=== PATIENT | female | born 1995 | race Caucasian/White ===

== ENCOUNTER 2017-01-08 14:00 | Outpatient (CLI) | payer MEDICAID | END 2017-01-08 14:01 | disposition home or self-care (01) | DX: L70.0 Acne vulgaris (principal); Z79.899 Other long term (current) drug therapy ==

== ENCOUNTER 2017-01-14 13:22 | Outpatient (CLI) | payer MEDICAID | END 2017-01-14 13:23 | disposition home or self-care (01) | DX: L70.0 Acne vulgaris (principal); Z79.899 Other long term (current) drug therapy ==

== ENCOUNTER 2017-03-15 07:43 | Outpatient (CLI) | payer MEDICAID | END 2017-03-15 07:44 | disposition home or self-care (01) | LOC: LAB.F 07:43 | PROVIDERS: ATTEND Physician Assistant Medical | DX: L70.0 Acne vulgaris (principal) | CPT/HCPCS: 36415; 84703 ==

== ENCOUNTER 2017-04-15 09:43 | Outpatient (CLI) | payer MEDICAID | END 2017-04-15 09:44 | disposition home or self-care (01) | LOC: LAB.F 09:43 | PROVIDERS: ATTEND Physician Assistant Medical | DX: I70.0 Atherosclerosis of aorta (principal) | CPT/HCPCS: 36415; 84703 ==

== ENCOUNTER 2017-05-21 07:45 | Outpatient (CLI) | payer MEDICAID ==
[2017-05-21 11:54] LABS: CHOL/HDL RATIO 5.9 (<4.4); CHOLESTEROL 170 mg/dL; HDL CHOLESTEROL 29 mg/dL; LDL/HDL RATIO 3.9 (<4.4); TRIGLYCERIDES 146 mg/dL; VLDL CHOLESTEROL 29 mg/dL
== END 2017-05-21 07:46 | disposition home or self-care (01) ==
LOC: LAB.F 07:45
PROVIDERS: ATTEND Physician Assistant Medical
DX: Z79.899 Other long term (current) drug therapy (principal)
CPT/HCPCS: 36415; 80061; 84450; 84460; 84703

== ENCOUNTER 2017-08-22 09:17 | Outpatient (CLI) | payer MEDICAID ==
[2017-08-22 18:25] LABS: CHOL/HDL RATIO 6.2 (<4.4); CHOLESTEROL 192 mg/dL; HDL CHOLESTEROL 31 mg/dL; LDL/HDL RATIO 4.4 (<4.4); TRIGLYCERIDES 124 mg/dL; VLDL CHOLESTEROL 25 mg/dL
== END 2017-08-22 09:18 | disposition home or self-care (01) ==
LOC: LAB.F 09:17
PROVIDERS: ATTEND Physician Assistant Medical
DX: Z79.899 Other long term (current) drug therapy (principal)
CPT/HCPCS: 36415; 80061; 84450; 84460; 84703

== ENCOUNTER 2020-01-18 13:28 | Emergency (ER) | payer MEDICAID ==
--- NOTE | 2020-01-18 13:50 | ED Physician Documentation ---
PD HPI FEMALE - Stated complaint Stated Complaint: FEMALE - Chief complaint Chief Complaint: Abd Pain - History obtained from History obtained from: Patient - History of Present Illness Timing - onset: How many weeks ago (7) Timing - duration: Weeks (7) Timing - details: Abrupt onset, Still present Associated symptoms: Pelvic pain, Vaginal pain, Vaginal bleeding Contributing factors: Not sexually active. 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 She has had bleeding and cramping passing clots and she is saturating 6 large pads per day. She has been in to see her primary care and she has had an ultrasound done. They were unable to do a transvaginal as it hurt too much. She states that she has not had a pelvic examination and she does not believe she has been exposed to any STDs. She denies ever having intercourse. She does interact indicate that she has had intermittent vaginal pain as well as cramping pelvic pain associated with the bleeding. She has a history of iron deficiency anemia. She indicates that her menstrual periods were regular for some time until her mother went into menopause and after that she has been irregular and now continued bleeding for 7 weeks. She was put on a course of progesterone and when this did not work she was put on a higher dose which seemed to help a bit but did not resolve her problem. She is now been placed on a higher dose control pill without resolution of her symptoms over the past 2 weeks. Review of Systems Constitutional: denies: Fever Eyes: denies: Photophobia Ears: denies: Ear pain Nose: denies: Congestion Throat: denies: Sore throat Cardiac: denies: Chest pain / pressure, Palpitations Respiratory: denies: Dyspnea, Cough GI: denies: Abdominal Pain, Nausea, Vomiting, Constipation, Diarrhea : reports: Vaginal bleeding. denies: Dysuria, Frequency Skin: denies: Rash Musculoskeletal: denies: Neck pain, Back pain, Extremity pain Neurologic: denies: Generalized weakness, Focal weakness, Numbness PD PAST MEDICAL HISTORY - Present Medications Home Medications: Ambulatory Orders Medication Instructions Recorded Confirmed Medroxyprogesterone Acetate 10 mg PO DAILY PM #12 tablet 01/18/20 [Provera] - Allergies Allergies/Adverse Reactions: Allergies Allergy/AdvReac Type Severity Reaction Status Date / Time Penicillins Allergy Rash Verified 01/18/20 13:42 PD ED PE NORMAL - Vitals Vital signs reviewed: Yes (hypertensive ) - General General: Alert and oriented X 3, No acute distress, Well developed/nourished - HEENT HEENT: Atraumatic, PERRL, EOMI - Neck Neck: Supple, no meningeal sign - Respiratory Respiratory: No respiratory distress - Female Female : Mill Laborer present (radha), Other (bleeding from the vagina. There is pain to insertion of the speculum and there is redundant tissue. I am no able visulaize the cervix or tell where the bleeding is coming from. The bimanual e xam is similar in that I am not able to get the fingers deep enough to feel the cervix. The exam is inadequate to answer the first question about where the bleeding is coming from. ) - Derm Derm: Normal color, Warm and dry, No rash - Extremities Extremities: No deformity, No edema, No calf tenderness / cord Results - Vitals Vitals: Vital Signs - 24 hr 01/18/20 13:38 Temperature 36.1 C L Heart Rate 91 Respiratory 16 Rate Blood Pressure 147/86 H O2 Saturation 96 Oxygen O2 Source Room air - Labs Labs: Laboratory Tests 01/18/20 01/18/20 01/18/20 13:45 13:45 14:37 WBC 11.6 H RBC 3.99 L Hgb 11.2 L Hct 34.6 L MCV 86.7 MCH 28.1 MCHC 32.4 RDW 13.2 Plt Count 301 MPV 9.6 Neut # (Auto) 7.6 H Lymph # (Auto) 3.0 Owen # (Auto) 0.5 Eos # (Auto) 0.4 Baso # (Auto) 0.1 Absolute Nucleated RBC 0.00 Nucleated RBC % 0.0 PT INR Sodium Potassium Chloride Carbon Dioxide Anion Gap BUN Creatinine Estimated GFR (MDRD) Glucose Calcium Total Bilirubin AST ALT Alkaline Phosphatase Total Protein Albumin Globulin Albumin/Globulin Ratio Lipase Urine Color RED/BLOODY Urine Clarity CLOUDY Urine pH 6.0 Ur Specific [place] 1.025 1.025 Urine Protein 30 H Urine Glucose (UA) NEGATIVE Urine Ketones NEGATIVE Urine Occult Blood LARGE H Urine Nitrite NEGATIVE Urine Bilirubin NEGATIVE Urine Urobilinogen 0.2 (NORMAL) Ur Leukocyte Esterase NEGATIVE Urine RBC TNTC H Urine WBC 0-3 Ur Squamous Epith Cells NONE SEEN Urine Bacteria Rare Ur Microscopic Review INDICATED Urine Culture Comments NOT INDICATED Urine HCG, Qual NEGATIVE 01/18/20 01/18/20 14:37 14:37 WBC RBC Hgb Hct MCV MCH MCHC RDW Plt Count MPV Neut # (Auto) Lymph # (Auto) Owen # (Auto) Eos # (Auto) Baso # (Auto) Absolute Nucleated RBC Nucleated RBC % PT 13.6 H INR 1.2 Sodium 135 Potassium 3.8 Chloride 104 Carbon Dioxide 23 Anion Gap 8.0 BUN 17 Creatinine 0.7 Estimated GFR (MDRD) 105 Glucose 99 Calcium 9.0 Total Bilirubin 0.6 AST 19 ALT 23 Alkaline Phosphatase 75 Total Protein 8.2 Albumin 3.9 Globulin 4.3 H Albumin/Globulin Ratio 0.9 L Lipase 24 Urine Color Urine Clarity Urine pH Ur Specific [place] Urine Protein Urine Glucose (UA) Urine Ketones Urine Occult Blood Urine Nitrite Urine Bilirubin Urine Urobilinogen Ur Leukocyte Esterase Urine RBC Urine WBC Ur Squamous Epith Cells Urine Bacteria Ur Microscopic Review Urine Culture Comments Urine HCG, Qual PD MEDICAL DECISION MAKING - ED course Complexity details: reviewed results, re-evaluated patient, considered differential, d/w patient ED course: 24 y/o female with DUB for 7 weeks has tried progestin and high dose control without effect on her bleeding and she presents now for help. Her blood counts are adequate. I was not able to do an adequate pelvic exam secondary to pain and redundant tissue. Dr. Brink is consulted in the case and recommends changing the patient's progesterone to Provera and having her take an escalating dose until she has control of her bleeding and then to restart the control pill. She recommends follow-up for reexamination and potential imaging to include either transvaginal probe under sedation or pelvic MRI. We will treat empirically today. Departure - Departure Disposition: 01 Home, Self Care Clinical Impression: Dysfunctional uterine bleeding Condition: Stable Instructions: ED Bleed Irregular Vaginal Follow-Up: JERICHO GARVEY ND [Primary Care Provider] - [facility] [Provider Group] Prescriptions: Medroxyprogesterone Acetate [Provera] 10 mg PO DAILY PM #12 tablet Comments: Today your blood counts were adequate the hematocrit of 34.6 and a hemoglobin of 11.2. The recommendation is to take the Provera 10 mg pill and if that does not control your bleeding on the second day take a second pill. If you do not get bleeding controlled by the third day take 3 pills. When your bleeding is controlled restart the control pill.
[2020-01-18 14:46] LABS: BILIRUBIN,URINE NEGATIVE (NEGATIVE); GLUCOSE, URINE (UA) NEGATIVE (NEGATIVE); KETONES,URINE (UA) NEGATIVE (NEGATIVE); LEUKOCYTE ESTERASE, URINE NEGATIVE (NEGATIVE); NITRITE,URINE NEGATIVE (NEGATIVE); OCCULT BLOOD,URINE LARGE (NEGATIVE); PROTEIN,URINE 30 mg/dL (NEGATIVE); UROBILINOGEN,URINE 0.2 (NORMAL) E.U./dL (NORMAL)
[2020-01-18 14:47] LABS: BASOPHILS # (AUTO) 0.1 10^3/uL (0.0-0.1); BASOPHILS % (AUTO) 0.4 %; EOSINOPHILS # (AUTO) 0.4 10^3/uL (0.0-0.7); EOSINOPHILS % (AUTO) 3.5 %; HGB - HEMOGLOBIN 11.2 g/dL (12.0-16.0); LYMPHOCYTES % (AUTO) 26.1 %; MEAN CORPUSCULAR HEMOGLOBIN 28.1 pg (27.0-31.0); MEAN CORPUSCULAR HGB CONC 32.4 g/dL (32.0-36.0); MEAN CORPUSCULAR VOLUME 86.7 fL (81.0-99.0); MEAN PLATELET VOLUME 9.6 fL (7.9-10.8); MONOCYTES # (AUTO) 0.5 10^3/uL (0.0-1.0); MONOCYTES % (AUTO) 4.6 %; NEUTROPHILS # (AUTO) 7.6 10^3/uL (1.5-6.6); PLT - PLATELET COUNT 301 10^3/uL (130-450); RED BLOOD COUNT 3.99 10^6/uL (4.20-5.40); RED CELL DISTRIBUTION WIDTH 13.2 % (12.0-15.0); WHITE BLOOD COUNT 11.6 x10^3/uL (4.8-10.8)
[2020-01-18 14:49] LABS: CLARITY,URINE CLOUDY (CLEAR)
[2020-01-18 14:51] LABS: INR 1.2 (0.8-1.2); PT - PROTHROMBIN TIME 13.6 secs (9.9-12.6)
[2020-01-18 14:54] LABS: RBC,URINE TNTC /HPF (0-5); SQUAMOUS EPITHELIAL CELL,UR NONE SEEN (<= Few)
[2020-01-18 14:55] LABS: BACTERIA,URINE Rare /HPF (None Seen); HCG UR QUAL NEGATIVE
[2020-01-18 14:56] LABS: ALBUMIN 3.9 g/dL (3.2-5.5); ALBUMIN/GLOBULIN RATIO 0.9 (1.0-2.2); BILIRUBIN,TOTAL 0.6 mg/dL (0.2-1.0); CREATININE 0.7 mg/dL (0.4-1.0); TOTAL PROTEIN 8.2 g/dL (6.7-8.2)
[2020-01-18 15:41] VITALS: BP 134/119
== END 2020-01-18 15:41 | disposition home or self-care (01) ==
LOC: ED 13:28
DX: N93.8 Other specified abnormal uterine and vaginal bleeding (principal)
CPT/HCPCS: 36415; 80053; 81001; 81003; 81025; 83690; 85025; 85610; 87086; 87661; 87801; 99283; 99284

== ENCOUNTER 2020-03-17 09:44 | Day surgery (SDC) | payer MEDICAID ==
[2020-03-17] MEDS ORDERED: LACTATED RINGERS 1,000 ML IV ONE ×2 (09:54→13:03)
[2020-03-17 10:04] LABS: HCG UR QUAL NEGATIVE
--- NOTE | 2020-03-17 10:38 | ANESTHESIA ---
Pre-Anesthesia VS, & Labs - Diagnosis Abnormal bleeding - Procedure Dand C with IUD placement Vital Signs: Temp Pulse Resp BP Pulse Ox 36 C L 107 H 12 146/89 H 98 03/17/20 09:55 03/17/20 09:55 03/17/20 09:55 03/17/20 09:55 03/17/20 09:55 Height 5 ft 11 in Weight (kg) 134 kg Body Mass Index 44.6 - NPO >8 hours - Is Patient ?: No - Lab Results Lab results reviewed: Yes Home Medications and Allergies Home Medications: Ambulatory Orders ALPRAZolam [Alprazolam] 0.5 - 1 mg PO DAILY PRN 03/10/20 Citalopram [CeleXA] 40 mg PO DAILY 03/10/20 Ferrous Gluconate [Iron] 240 mg PO DAILY 03/10/20 Loratadine [Claritin] 10 mg PO DAILY 03/10/20 Propranolol HCl 20 mg PO DAILY PRN 03/10/20 ALPRAZolam [Alprazolam] 0.5 - 1 mg PO DAILY PRN 03/10/20 Citalopram [CeleXA] 40 mg PO DAILY 03/10/20 Ferrous Gluconate [Iron] 240 mg PO DAILY 03/10/20 Loratadine [Claritin] 10 mg PO DAILY 03/10/20 Propranolol HCl 20 mg PO DAILY PRN 03/10/20 Allergies/Adverse Reactions: Allergies Allergy/AdvReac Type Severity Reaction Status Date / Time egg Allergy Unknown Verified 03/17/20 10:12 Penicillins Allergy Anaphylaxis Verified 03/10/20 13:43 soy Allergy Unknown Verified 03/17/20 10:12 Anes History & Medical History - Anesthetic History Anesthesia Complications: reports: No previous complications Family history of Anesthesia Complications: Denies Family history of Malignant Hyperthermia: Denies - Medical History Cardiovascular: reports: None Pulmonary: reports: None, Sleep apnea Gastrointestinal: reports: None Urinary: reports: None Musculoskeletal: reports: None Endocrine/Autoimmune: reports: None Skin: reports: None Smoking Status: Never smoker Psychosocial: reports: Depression, Anxiety Exam General: Alert, Oriented x3 Dental: WNL Mouth Openin Fingerbreadth Neck Mobility: Normal Mallampati classification: II Thyromental Distance: 4-6 cm Respiratory: Lungs clear Cardiovascular: Regular rate Mental/Cognitive Status: Alert/Oriented X3 Cognitive Status: Within normal limits Plan Anesthesia Type: General Consent for Procedure(s) Verified and Reviewed: Yes Code Status: Attempt Resuscitation ASA classification: 2-Mild systemic disease Is this case an emergency?: No
[2020-03-17] MEDS ORDERED: LIDOCAINE 1%-EPI 1:100000 20 ML MDV ONE (11:16)
[2020-03-17] MEDS ORDERED: LEVONORGESTREL 20 MCG/24H IUD IY ONE (11:16)
[2020-03-17] MEDS ORDERED: SILVER NITRATE APPLICATOR TOP ONE ×2 (11:17→12:25)
[2020-03-17] MEDS ORDERED: ACETAMINOPHEN 1,000 MG/100 ML 100 ML IV ONE ×2 (11:25→11:30)
[2020-03-17] MEDS ORDERED: CELECOXIB 100 MG CAPSULE PO ONE (11:26)
[2020-03-17] MEDS ORDERED: GABAPENTIN 400 MG CAPSULE ONE (11:26)
[2020-03-17] MEDS ORDERED: MIDAZOLAM 2 MG/2 ML VIAL IVP ONE (11:30)
[2020-03-17] MEDS ORDERED: ETOMIDATE 40 MG/20 ML VIAL IVP ONE (11:30)
[2020-03-17] MEDS ORDERED: KETOROLAC 30 MG/ML VIAL IVP ONE (11:30)
[2020-03-17] MEDS ORDERED: fentaNYL 100 MCG/2 ML VIAL IVP ONE (11:30)
[2020-03-17] MEDS ORDERED: HYDROmorphone 1 MG/ML CARPUJECT IVP ONE (11:30)
[2020-03-17] MEDS ORDERED: LIDOCAINE 1%-EPI 1:100000 20 ML MDV SUBQ ONE (12:01)
[2020-03-17] MEDS ORDERED: oxyCODONE 5 MG TABLET PO PRN (12:40)
[2020-03-17] MEDS ORDERED: LIDOCAINE 2% URO-JET 5 ML SYRINGE UR ONE (12:40)
--- NOTE | 2020-03-17 12:42 | OPERATIVE REPORT ---
Operative Report - General Procedure Date: 03/17/20 Planned Procedure: Exam under anesthesia, pap smear, hysteroscopy D&C, and Mirena IUD placement Pre-Op Diagnosis: Dysfunctional uterine bleeding, unable to tolerate pelvic exam Procedure Performed: Exam under anesthesia, pap smear, hysteroscopy D&C, and Mirena IUD placement Mirena Lot# [id number] Post Op Diagnosis: same - Procedure Note Primary Surgeon: Estefany Brink MD Anesthesia Provider: Angel Arnold CRNA Anesthesia Technique: General LMA Pathology: Uterine contents IV Fluids (mL): 700 Estimated Blood Loss (mL): 25 Urine Output (mL): 100 Indications: Patient is a 24 yo G0 who has ongoing issues with severe dysfunctional uterine bleeding. At one point, she was seen in the ER and was unable to tolerate a pelvic exam or a pelvic us. She is sexually naive. She has never had a pelvic exam or a pap smear for cervical cancer screening. She had been bleeding despite 30 mg of medroxyprogesterone daily. She was then started on Depo Provera. Bl eeding is now intermittent with light flow but the cause of bleeding remains undetermined. She has an elevated BMI and remains at risk for hyperplasia. She would like an exam under anesthesia, with a pap smear and Mirena IUD placement. Given the hyperplasia risk, endometrial sampling is indicated as is exploration of the uterine cavity for possible structural causes of her bleeding. As such, she will also undergo hysteroscopy D&C with possible polypectomy. Findings: Nulliparous cervix. Uterine cavity thick with polypoid endometrium. Sounds to 8 cm. Bilateral tubal ostia noted. Complications: none - Other Other Information/Narrative: Risks benefits and alternatives to the procedure were reviewed. Consent was again confirmed. Patient was taken to the operating room where she underwent general anesthesia. She was positioned in dorsolithotomy position with legs resting in yellowfin stirrups. A preoperative time out was performed. Speculum was placed a a pap smear was collected. Speculum was removed. She was then prepped and draped in the usual sterile fashion. Preoperative antibiotics were not indicated. Exam under anesthesia was performed. Speculum was again placed in the vagina and the cervix was visualized. Single-tooth tenaculum was placed at the anterior cervical lip. Paracervical block was administered using a total of 20 cc of 1% lidocaine with epinephrine was injected at the 4:00 and 8:00 positions lateral to the portio of the cervix. The cervical os was serially dilated with Hegar dilators to accommodate the caliber of the diagnostic hysteroscope. Uterus sounded to 8 cm. The hysteroscope was inserted and findings were noted as above. Sharp curettage D&C was performed with sharp curettage. Hysteroscope was reinserted and numerous polyps remained despite moderate amount of tissue collected on curettage. The hysteroscopic morcellator was inserted through the operative port. The intrauterine polyps were morcellated under direct visualization. Uterine cavity was smooth at close of the procedure. Hysteroscope was removed and Mirena IUD was placed according to package directions. Strings were trimmed to 3-4 cm. Tenaculum was removed. Tenaculum sites were noted to be hemostatic. All instruments were removed from the vagina. Speculum was removed and a laceration of the hymenal ring was noted. Silver nitrate was applied and was unsuccessful in obtaining hemostasis. A single figure of 8 suture using 3-0 Vicryl was placed and good hemostasis was noted. Procedure was well-tolerated without complication. Fluid deficit 500 cc NS:
[2020-03-17] MEDS ORDERED: LIDOCAINE JELLY 2% 6 ML JEL.PF.APP ONE (12:51)
[2020-03-17] MEDS ORDERED: PROMETHAZINE 25 MG/1 ML VIAL ONE (12:58)
[2020-03-17] MEDS ORDERED: fentaNYL 100 MCG/2 ML VIAL ONE (13:02)
[2020-03-17 13:59] VITALS: BP 126/69
[2020-03-17] MEDS ORDERED: oxyCODONE 5 MG TABLET ONE (14:01)
[2020-03-17] MEDS ORDERED: ONDANSETRON 4 MG/2 ML VIAL ONE (14:10)
== END 2020-03-17 09:45 | disposition home or self-care (01) ==
LOC: SDS 09:44
PROVIDERS: ATTEND Obstetrics & Gynecology
PROC: 0UB98ZZ Excision of Uterus, Via Natural or Artificial Opening Endoscopic (ICD-10-PCS; principal; 2020-03-17 11:00)
PROC: 0UH97HZ Insertion of Contraceptive Device into Uterus, Via Natural or Artificial Opening (ICD-10-PCS; 2020-03-17 11:00)
DX: N93.8 Other specified abnormal uterine and vaginal bleeding (principal); N84.0 Polyp of corpus uteri; N92.0 Excessive and frequent menstruation with regular cycle; Z12.4 Encounter for screening for malignant neoplasm of cervix; N91.5 Oligomenorrhea, unspecified
CPT/HCPCS: 58300; 58558; 81025; 88142; A9270; J0131; J1170; J7120; J7298; 88305

== ENCOUNTER 2020-10-04 09:10 | Outpatient (CLI) | payer MEDICAID | END 2020-10-04 09:11 | disposition home or self-care (01) | LOC: COV 09:10 | PROVIDERS: ATTEND Family Medicine | DX: Z20.828 Contact with and (suspected) exposure to other viral communicable diseases (principal) ==